=== PATIENT | male | born 1985 | race Caucasian/White ===

== ENCOUNTER 2017-12-03 20:11 | Emergency (ER) | payer OTHER ==
[~2017-12-03] VITALS: Ht 180.3 cm; Wt 99.8 kg
[~2017-12-03 20:11] MED LIST: AMITRIPTYLINE H25 MG PO; FLONASE ALLERG9.9 ML NS; NEURONTIN600 MG PO; SLEEPING50 MG PO; ULTRAM50 MG PO; ZOLOFT50 MG PO
[2017-12-03] MEDS ORDERED: LAMICTAL150 MG PO (20:57)
[2017-12-03] MEDS ORDERED: DOXEPIN HCL50 MG PO (20:57)
[2017-12-03] MEDS ORDERED: VENLAFAXINE HCL75 MG (20:58)
== END 2017-12-03 22:45 | disposition home or self-care (01) ==
LOC: ED 20:11
DX: S02.32XA Fracture of orbital floor, left side, initial encounter for closed fracture (principal); S02.2XXA Fracture of nasal bones, initial encounter for closed fracture; S16.1XXA Strain of muscle, fascia and tendon at neck level, initial encounter; S50.12XA Contusion of left forearm, initial encounter; Z87.891 Personal history of nicotine dependence; Z79.899 Other long term (current) drug therapy; Y04.8XXA Assault by other bodily force, initial encounter
CPT/HCPCS: 70450; 70486; 72125; 73090; 99284

== ENCOUNTER 2018-11-24 14:14 | Emergency (ER) | payer OTHER ==
[~2018-11-24] VITALS: Ht 180.3 cm; Wt 99.8 kg
[~2018-11-24 14:14] MED LIST changes: +DOXEPIN HCL50 MG PO; +LAMICTAL150 MG PO; +VENLAFAXINE HCL75 MG
[2018-11-24] MEDS ORDERED: ZOFRAN4 MG PO (16:25)
== END 2018-11-24 16:42 | disposition home or self-care (01) ==
LOC: ED 14:14
DX: S16.1XXA Strain of muscle, fascia and tendon at neck level, initial encounter (principal); S00.81XA Abrasion of other part of head, initial encounter; K52.9 Noninfective gastroenteritis and colitis, unspecified; R42 Dizziness and giddiness; W18.30XA Fall on same level, unspecified, initial encounter; E78.5 Hyperlipidemia, unspecified; Z79.899 Other long term (current) drug therapy; Z87.891 Personal history of nicotine dependence
CPT/HCPCS: 80053; 83690; 85025; 96374; 96375; 99284-25; J2270; J2405; J7030